=== PATIENT | female | born 1970 | race Two or more races ===

== ENCOUNTER 2020-04-29 17:01 | Outpatient (RCR) | payer OTHER, SELFPAY ==
[2020-04-29] MEDS: COVID-19 VACC, MRNA(PFIZER)/PF 30 MCG/0.3 ML SYRINGE IM (15:19)
[2020-05-20] MEDS: COVID-19 VACC, MRNA(PFIZER)/PF 30 MCG/0.3 ML SYRINGE IM (14:49)
== END 2020-04-29 23:59 ==
LOC: IMMUN 17:01
PROVIDERS: PCP Family Medicine; Visit Provider Family Medicine
DX: Z23 Encounter for immunization (principal)
CPT/HCPCS: 0001A; 0002A; 91300